=== PATIENT | female | born 2000 | race Caucasian/White ===

== ENCOUNTER 2023-06-13 19:57 | Inpatient (IN) ==
[2023-06-13 21:05] LABS: Urine Appearance Cloudy; Urine Bilirubin Negative (Negative); Urine Blood 1+ (Negative); Urine Color Yellow; Urine Glucose Negative (Negative); Urine Ketones Negative (Negative); Urine Nitrite Negative (Negative); Urine Protein Negative (Negative); Urine Specific Gravity 1.015 (1.002-1.030); Urine Urobilinogen Negative (Negative)
[2023-06-13 21:12] LABS: Urine Bacteria 1+ (Absent); Urine Red Blood Cell Trace(0-2/hpf) (Absent); Urine Squamous Epithelial Cell Present (Absent); Urine White Blood Cell 1+(6-10/hpf) (Absent)
[2023-06-13 21:23] LABS: Urine Benzodiazepine Screen None Detected (None Detect); Urine Cannabinoids Screen Presumptive Positive (None Detect); Urine Opiates Screen None Detected (None Detect)
[2023-06-13 21:46] LABS: ABS Eosinophils 0.4 10^3/uL (0.0-0.5); ABS Lymphocytes 3.1 10^3/uL (1.0-4.8); ABS Monocytes 0.6 10^3/uL (0.0-0.9); ABS Neutrophils 4.2 10^3/uL (1.5-7.6); ABS Nucleated RBC 0.01 10^3/ul; Eosinophil % 4.8 %; Hematocrit 40.7 % (35-45); Hemoglobin 13.9 g/dL (11.5-14.3); Lymphocyte % 37.7 %; Mean Corpuscular Hemoglobin 28.5 pg (27-33); Mean Corpuscular Hgb Conc 34.2 g/dL (31-36); Mean Corpuscular Volume 83.3 fL (80-97); Mean Platelet Volume 7.7 fL (7.5-11.2); Nucleated Red Blood Cells % 0.1 %/100WBC (0.0-0.8); Platelet Count 445 10^3/uL (150-450); Red Blood Count 4.88 10^6/uL (3.63-4.92); Red Cell Distribution Width 14.4 % (12-17); White Blood Count 8.4 10^3/uL (3.8-11.8)
[2023-06-13 22:05] LABS: ALT 10 U/L (7-52); AST 15 U/L (13-39); Albumin 4.1 g/dL (3.2-5.2); Albumin/Globulin Ratio 1.5 (1-3); Alkaline Phosphatase 43 U/L (35-149); Anion Gap 7 mmol/L (2-16); Blood Urea Nitrogen 7 mg/dL (6-24); CO2 Carbon Dioxide 27 mmol/L (22-32); Calcium 8.8 mg/dL (8.6-10.3); Chloride 106 mmol/L (101-111); Creatinine, Serum 0.74 mg/dL (0.51-0.95); Globulin 2.7 g/dL (2-4); Glucose 94 mg/dL (70-100); Potassium 3.9 mmol/L (3.5-5.0); Sodium 140 mmol/L (135-145); Total Bilirubin 0.4 mg/dL (0.2-1.0); Total Protein 6.8 g/dL (6.4-8.9); eGFR CKD-EPI 116.5 (>60)
[2023-06-13 22:12] LABS: Acetaminophen < 15 mcg/mL; Alcohol, S < 13 mg/dL (<13); Salicylate < 2.50 mg/dL (<30)
[2023-06-13 22:13] LABS: HCG Pregnancy 0.78 mIU/mL
[2023-06-13 22:27] LABS: TSH Ultra Thyroid Stim Horm 1.46 mcIU/mL (0.34-5.60)
[2023-06-13] MEDS ORDERED: Al Hydrox/Mg Hydrox/Simet LIQ 30 ML UDC PO PRN (22:54)
[2023-06-14] MEDS ORDERED: Nicotine Lozenge mini 2 MG LOZNG.MINI MT PRN (05:37)
[2023-06-14] MEDS ORDERED: Nicotine GUM 2MG FRUIT FLAVOR PO PRN (05:37)
[2023-06-14] MEDS ORDERED: DESOGESTREL ETHINYL ESTRADIOL PO SCH (09:00)
[2023-06-14] MEDS ORDERED: Nicotine PATCH 21 MG/24 HR PATCH TRANSDERM SCH (09:00)
[2023-06-14] MEDS: Vitamin THERAPEUTIC TAB PO SCH (09:37)
[2023-06-15] MEDS: Vitamin THERAPEUTIC TAB PO SCH (08:51)
[2023-06-15] MEDS: Nicotine PATCH 7 MG/24 HR PATCH TRANSDERM SCH (10:31)
[2023-06-16 08:14] VITALS: BP 131/86
[2023-06-16] MEDS: Nicotine PATCH 7 MG/24 HR PATCH TRANSDERM SCH (08:20)
[2023-06-16] MEDS: Vitamin THERAPEUTIC TAB PO SCH (08:21)
== END 2023-06-16 14:05 | disposition home or self-care (01) | DRG 751 ==
LOC: ED 19:57 → EDHOLD 22:30 → ED 22:47 → BSU 22:54
PROVIDERS: ADMIT Psychiatry & Neurology Psychiatry; ATTEND Psychiatry & Neurology Psychiatry